=== PATIENT | female | born 1970 | race Caucasian/White ===

== ENCOUNTER 2021-12-21 11:04 | Emergency (ER) | payer SELFPAY ==
[2021-12-21 11:56] LABS: SARS-CoV-2 Antigen Rapid Res Negative (Negative)
--- NOTE | 2021-12-21 12:01 | ER ---
Nurse's Notes [facility] Name: Jo Pierce Age: 51 yrs Sex: Female : 1970 Arrival Date: 12/21/2021 Time: 11:13 Bed DIS2 Private MD: Diagnosis: Dental Pain;Fatigue Presentation: 12/21 11:22 Chief complaint: Patient states: I think it's my gums, i think they're infected, she iw complained of nausea and not feeling well while at work and now they told me I need a COVID test. Coronavirus screen: At this time, the client does not indicate any symptoms associated with coronavirus-19. Ebola Screen: Patient negative for fever greater than or equal to 101.5 degrees Fahrenheit, and additional compatible Ebola Virus Disease symptoms Patient denies exposure to infectious person. Patient denies travel to an Ebola-affected area in the 21 days before illness onset. No symptoms or risks identified at this time. Initial Sepsis Screen: Does the patient meet any 2 criteria? No. Patient's initial sepsis screen is negative. Does the patient have a suspected source of infection? No. Patient's initial sepsis screen is negative. Risk Assessment: Do you want to hurt yourself or someone else? Patient reports no desire to harm self or others. Onset of symptoms was December 21, 2021. 11:22 Method Of Arrival: Ambulatory iw 11:22 Acuity: ALIA 4 iw Historical: - Allergies: 11:23 No Known Allergies; iw - Home Meds: 11:23 None [Active]; iw - PMHx: 11:23 None; iw ED Course: 11:13 Patient arrived in ED. am2 11:15 Donald Rodriguez PA is PHCP. [facility] 11:15 Nitin Davidson MD is Attending Physician. [facility] 11:23 Triage completed. iw 11:38 SARS RAPID Sent. zm 12:06 Sandi Alvarado RN is Primary Nurse. hb 12:32 Brisa Del Castillo RN is Primary Nurse. iw 12:32 Arm band placed on. iw Administered Medications: No medications were administered Outcome: 12:00 Discharge ordered by MD. [facility] 12:32 Patient left the ED. iw Signatures: Donald Rodriguez PA PA jmm Williams, Irene, RN RN iw Sandi Alvarado RN RN Lili Alatorre am2 Neha Liu zm
--- NOTE | 2021-12-21 12:01 | EDPHYS ---
Physician Documentation [facility] Name: Jo Pierce Age: 51 yrs Sex: Female : 1970 Arrival Date: 12/21/2021 Time: 11:13 Bed DIS2 Private MD: ED Physician Nitin Davidson HPI: 12/21 11:23 This 51 yrs old Female presents to ER via Ambulatory with complaints of covid test. jmm 11:23 The patient presents with pain, swelling. Onset: The symptoms/episode began/occurred jmm gradually, 1 week(s) ago. Is a 51-year-old female that presents emerged part with complaints of fatigue and pain to her gums which she is attributed to an oral infection. Patient states she called her work yesterday and was advised to go to the ED to get cleared from COVID.. Historical: - Allergies: 11:23 No Known Allergies; iw - Home Meds: 11:23 None [Active]; iw - PMHx: 11:23 None; iw ROS: 11:23 Cardiovascular: Negative for chest pain, palpitations, and edema, Respiratory: Negative jmm for shortness of breath, cough, wheezing, and pleuritic chest pain, Abdomen/GI: Negative for abdominal pain, nausea, vomiting, diarrhea, and constipation. 11:23 Constitutional: Positive for body aches, chills, fatigue. 11:23 ENT: Positive for Gum pain 11:23 All other systems are negative. Exam: 11:23 Constitutional: This is a well developed, well nourished patient who is awake, alert, jmm and in no acute distress. Head/Face: atraumatic. Eyes: EOMI, no conjunctival erythema appreciated 11:23 Neck: Trachea midline, Supple Chest/axilla: Normal chest wall appearance and motion. Cardiovascular: Regular rate and rhythm. No edema appreciated Respiratory: Normal respirations, no respiratory distress appreciated Abdomen/GI: Non distended Back: Normal ROM Skin: General appearance color normal MS/ Extremity: Moves all extremities, no obvious deformities appreciated, no edema noted to the lower extremities Neuro: Awake and alert Psych: Behavior is normal, Mood is normal, Patient is cooperative and pleasant 11:23 ENT: Posterior pharynx: is normal. MDM: 11:[address] [facility] 11:59 Data reviewed: vital signs, nurses notes. Counseling: I had a detailed discussion with [facility] the patient and/or guardian regarding: the historical points, exam findings, and any diagnostic results supporting the discharge/admit diagnosis, the need for outpatient follow up, to return to the emergency department if symptoms worsen or persist or if there are any questions or concerns that arise at home. 12/21 11:24 Order name: NACHO BROWNLEE; Complete Time: 11:[address] [facility] Administered Medications: No medications were administered Disposition Summary: 12/21/21 12:00 Discharge Ordered Location: Home [facility] Condition: Stable [facility] Diagnosis - Dental Pain [facility] - Fatigue [facility] Followup: [facility] - With: Private Physician - When: 2 - 3 days - Reason: Recheck today's complaints, Continuance of care, Re-evaluation by your physician Discharge Instructions: - Discharge Summary Sheet [facility] - Dental Pain [facility] Forms: - Work release form [facility] - Medication Reconciliation Form [facility] - Thank You Letter [facility] - Antibiotic Education [facility] - Prescription Opioid Use [facility] Prescriptions: - Peridex 0.12 % Mucous Membrane mouthwash - place 15 milliliter by MUCOUS MEMBRANE route 2 times per day after brushing [facility] teeth, swish in mouth for 30 seconds then spit out; 1 bottle; Refills: 0, Product Selection Permitted - ondansetron 4 mg Oral tablet,disintegrating - take 1 tablet by ORAL route every 4-6 hours; 20 tablet; Refills: 0, Product [facility] Selection Permitted - Amoxicillin 875 mg Oral Tablet - take 1 tablet by ORAL route every 12 hours for 10 days; 20 tablet; Refills: 0, [facility] Product Selection Permitted Addendum: 12/25/2021 04:05 Co-signature as Attending Physician, Nitin Davidson MD I agree with the assessment and [facility] plan of care. Signatures: Dispatcher [employer] Nitin Norton MD MD cha Mickail, Joel, PA PA jmm Williams, Irene RN RN iw
== END 2021-12-21 12:32 | disposition home or self-care (01) ==
LOC: ER 11:04
DX: R53.83 Other fatigue (principal); K08.89 Other specified disorders of teeth and supporting structures; Z20.822 Contact with and (suspected) exposure to COVID-19
CPT/HCPCS: 36415; 87811; 99282